=== PATIENT | female | born 1935 | race Caucasian/White ===

== ENCOUNTER 2016-09-18 12:34 | Inpatient (IN) | payer MEDICARE, OTHER ==
--- NOTE | ~2016-09-18 | DS ---
Unit #: [id number] #: [id number] Patient: ARCADIO MOBLEY [id number] [address] [address] [id number] I MR#: [id number] NAME: ARCADIO MOBLEY. ROOM: 309 Age: 80 Sex: F Admission Date: 09/18/2016 : 1935 Discharge Date: Attending Physician: Susy Chiu M.D. Primary Care Physician: Watson Parry M.D. DISCHARGE SUMMARY DISCHARGE DIAGNOSES 1. Acute hypoxic respiratory failure. 2. Community-acquired pneumonia. 3. Chronic obstructive pulmonary disease with exacerbation. 4. Hypertension. 5. Hyperlipidemia. 6. Degenerative disc disease. 7. Former smoker. CONSULTATIONS None. PROCEDURES None. LAB DATA Chest x-ray is clear. Blood cultures negative. Sodium 136, potassium 4.9, creatinine 0.5. Liver enzymes normal. BNP 316. ALLERGIES Amoxicillin, Symbicort, formoterol, Levaquin. DISCHARGE MEDICATIONS 1. Norvasc 20 mg p.o. daily. 2. Pravastatin 40 daily. 3. Lisinopril 40 daily. 4. Tylenol with codeine #3, one tablet q.6 p.r.n. pain. 5. Doxycycline 100 mg p.o. b.i.d. 6. Albuterol two puffs inhalation q.4 p.r.n. shortness of breath. 7. Prednisone tapering dose. 8. Albuterol mini nebs inhalation three times daily p.r.n. shortness of breath. HOSPITALIZATION COURSE 80-year-old admitted because of shortness of breath. Acute hypoxic respiratory failure: Patient was on 3 L currently. Check home O2 before discharge. Community-acquired pneumonia with left base infiltrate: Patient was given Unit #: [id number] #: [id number] Patient: ARCADIO MOBLEY doxycycline. Currently, chest x-ray is clear. Chronic obstructive pulmonary disease with exacerbation: Started on IV Solu-Medrol and Duo-Nebs. Patient's lungs are clear. She is ambulating in her room with shortness of breath. She wants to go home. Family agrees to take care of her. I advised her not to do too much exertion. She understands the instructions. She has Symbicort allergy so I am not going to give her any Symbicort. Continue with albuterol and prednisone tapering dose and follow with PCP in one week time. Dictated by... Heather Caruso/cy TD: 09/21/2016 10:39 JOB #: [id number] DISCHARGE SUMMARY Page 1 of 1 X Susy Chiu MD X DISCHARGE SUMMARY
--- NOTE | ~2016-09-18 | HP ---
Unit #: [id number] #: [id number] Patient: RACADIO MOBLEY [id number] [facility]. [place], [place] [address] [id number] I MR#: [id number] NAME: ARCADIO MOBLEY. ROOM: 309 Age: 80 Sex: F Admission Date: 09/18/2016 : 1935 Attending Physician: Sarah Costa M.D. Primary Care Physician: Watson Parry M.D. HISTORY AND PHYSICAL CHIEF COMPLAINT Pneumonia. HISTORY OF PRESENT ILLNESS The patient is an 80-year-old female with past medical history of COPD, hypertension, hyperlipidemia, degenerative disc disease, who was a direct admit from Dr. Parry for evaluation of the above. The patient states that she has had a two to three week history of increasing shortness of breath. She states that she has had minimal cough until today at which time the cough became productive. She denies any fever although she did feel "hot" yesterday. She denies any chills. No chest pain. She has had dyspnea on exertion when walking across the room. She denies any orthopnea. No paroxysmal nocturnal dyspnea. No swelling of the legs. No weight change. She saw her primary care physician last week and was given a Z-Guille which she completed as prescribed. Symptoms persisted until she was seen in the office today. A chest x-ray was done and showed an infiltrate involving the left base. She was sent to [facility] for admission. PAST MEDICAL HISTORY 1. Admission to [facility] August 25-2012 for right total knee arthroplasty. 2. Hypertension. 3. Hyperlipidemia. 4. COPD, not on home oxygen, not followed by [facility]. 5. Degenerative disc disease. 6. Echocardiogram January 29, 2012 showed an ejection fraction of 50% to 55%. The Doppler flow pattern is suggestive of impaired left ventricular relaxation. There is mild tricuspid regurgitation. Right ventricular systolic pressure was elevated at 40 to 50 mmHg. PAST SURGICAL HISTORY 1. Appendectomy. 2. Hysterectomy. SOCIAL HISTORY The patient lives with her . She quit smoking years ago but probably smoked for 10 to 20 years. According to the patient, she denies alcohol use. Her code status is a Full Code. FAMILY HISTORY Family history is notable for osteoarthritis, diabetes, hypertension. Unit #: [id number] #: [id number] Patient: ARCADIO MOBLEY ALLERGIES Symbicort, budesonide, Levaquin. HOME MEDICATIONS 1. Prinivil 40 mg daily. 2. Pravastatin 40 mg daily. 3. Amlodipine 10 mg daily. 4. Hydrocodone and acetaminophen 5/325 q.6-8 h. p.r.n. 5. Proventil two puffs q.4 h. p.r.n. 6. Triamterene and hydrochlorothiazide 75/50 p.o. daily. REVIEW OF SYSTEMS A complete review of systems is negative except as indicated in the HPI. DIAGNOSTIC STUDIES IMAGING: Chest x-ray shows infiltrate involving the left base. CARDIOVASCULAR: EKG shows sinus rhythm with marked sinus arrhythmia and a rate of 73 beats per minute. There is T-wave inversion in leads V3 through V6. LABORATORY: Labs are pending. PHYSICAL EXAMINATION VITAL SIGNS: Temperature is 97.7. Pulse 75. Respirations 16. Blood pressure 147/67. Oxygen saturation is 93% on room air. GENERAL: The patient is a very pleasant female who is awake and alert, in no acute distress. HEENT: The head is atraumatic. Mucous membranes are moist. NECK: Neck is supple. Trachea is midline. CARDIOVASCULAR: Regular rate and rhythm. LUNGS: Demonstrate scattered inspiratory and expiratory wheezes. Breathing is not labored with conversation. ABDOMEN: Abdomen is soft, nontender, with bowel sounds present in all four quadrants. EXTREMITIES: Nontender, with no pedal edema. NEUROLOGIC: The patient is awake and alert. She follows commands. PSYCHIATRIC: Mood and affect are normal. The patient is cooperative. SKIN: Skin of examined areas is warm and dry. ASSESSMENT The patient is an 80-year-old female with: 1. Community-acquired pneumonia. 2. Chronic obstructive pulmonary disease exacerbation that has failed outpatient treatment with azithromycin. 3. Hypertension. 4. Hyperlipidemia. 5. Degenerative disc disease. 6. Former smoker. PLAN 1. Admit to intermediate level. 2. Healthy heart diet if passes bedside swallow. 3. Normal saline at 75 mL an hour. 4. Blood cultures x2. 5. Sputum culture and sensitivity. 6. Supplemental oxygen. Unit #: [id number] #: [id number] Patient: ARCADIO MOBLEY 7. DuoNeb q.4 h. 8. Solu-Medrol 80 mg IV q.12 h. 9. Mucinex 600 mg p.o. b.i.d. 10. Rocephin and doxycycline for community-acquired pneumonia pending further workup. 11. Procalcitonin level. 12. Check labs including CBC, CMP, BNP. 13. EKG and cardiac enzymes. 14. Protonix for GI prophylaxis. 15. SCDs for DVT prophylaxis. 16. Repeat labs in the morning. 17. Regarding code status the patient is a Full Code. Dictated by Sarah Costa M.D. JONATHON/wilfredo TD: 09/18/2016 15:19 JOB #: [id number] HISTORY AND PHYSICAL Page 1 of 1 X Sarah Costa MD HISTORY AND PHYSICAL
--- NOTE | ~2016-09-18 | CR63 ---
[facility] A Service of [facility] & [facility] RADIOLOGY TEXT RESULTS PATIENT: ARCADIO MOBLEY LOCATION: [facility] 309- : 34 UNIT #: [id number] AGE: [address]: Susy Chiu MD SEX: F ORDER DR: [id number] [facility] [address] [place], [place] [address] [id number] I MR#: [id number] Acc #: [id number] NAME: ARCADIO MOBLEY. : 1935 SEX: F STUDY DATE/TIME: 09/20/2016 11:59 UNIT: [address] ROOM: [facility] STUDY DESCRIPTION: CR Chest 2 View Attending Physician: Susy Chiu M.D. Ordering Physician: Susy Chiu M.D. Primary Care Physician: Watson Parry M.D. MEDICAL IMAGING REPORT This report is preliminary unless electronic signature is present STUDY PA and lateral chest. HISTORY Mild chest congestion since . FINDINGS PA and lateral views are obtained. Heart size is enlarged. Vascular pattern is normal. Lungs are clear. There are dense atherosclerotic calcifications in the aorta. CONCLUSION Stable cardiomegaly. No active disease. ADDENDUM The infiltrate in the left base appears to have cleared. Dictated by... Andrew Pittman M.D. THIS IS AN ELECTRONICALLY VERIFIED REPORT Andrew Pittman M.D. at 09/21/2016 9:17 AM Fransisca TD: 09/20/2016 19:31 JOB #: [id number] MEDICAL IMAGING REPORT Page 1 of 1 COPY
--- NOTE | ~2016-09-18 | EKG ---
PATIENT: ARCADIO MOBLEY UNIT #: [id number] Ventricular Rate: 73 BPM Atrial Rate: 73 BPM P-R Interval: 134 ms QRS Duration: 96 ms Q-T Interval: 428 ms QTC Calculation(Bezet): 471 ms P Salem: 66 degrees Calculated R Salem: -66 degrees Calculated T Salem: -142 degrees Diagnosis Line: Sinus rhythm with marked sinus arrhythmia Diagnosis Line: Left axis deviation Diagnosis Line: Septal infarct (cited on or before 06-AUG-2011) Diagnosis Line: T wave abnormality, consider inferior ischemia Diagnosis Line: T wave abnormality, consider anterolateral Diagnosis Line: ischemia Diagnosis Line: Abnormal ECG Diagnosis Line: When compared with ECG of 16-AUG-2012 08:18, Diagnosis Line: Significant changes have occurred Diagnosis Line: Confirmed by VAUGHN BATES MD ([id number]) on 09/18/2016 Diagnosis Line: 6:58:43 PM INTERPRETING MD: JANA VALLE
[~2016-09-18 12:34] MED LIST: ALBUTEROL17 GM INH; AMLODIPINE BESY10 MG PO; BENADRYL PO; BYSTOLIC10 MG PO; COUMADIN PO; DOXYCYCLINE150 MG PO; HYDROCODON-ACE1 EAC7 PO; PRAVASTATIN SOD40 MG PO; PREDNISONE PO; PRINIVIL40 MG PO; SYMBICORT INH; TRIAMTERENE-HC1 EACH PO; ZESTRIL40 MG PO; ZYRTEC PO
[2016-09-18] MEDS ORDERED: PROVENTIL HFA INH (13:10)
[2016-09-18] MEDS ORDERED: TRIAMTERENE-HC1 EACH PO (13:11)
[2016-09-18 14:30] LABS: HEMATOCRIT 39.7 % (35.0-45.0); HEMOGLOBIN 12.7 gm/dL (12.0-16.0); MEAN CELL VOLUME 92.1 FL (83-96); MEAN CORPUSCULAR HEMOGLOBIN 29.4 PG (28-34); MEAN CORPUSCULAR HGB CONC 31.9 g/dL (30-36); MEAN PLATELET VOLUME 8.3 FL (6.5-11.5); RED BLOOD COUNT 4.31 X10e (3.90-5.30); WHITE BLOOD COUNT 7.7 X10e3 (4.0-10.5)
[2016-09-18 15:01] LABS: BILIRUBIN,TOTAL 0.8 mg/dL (0.2-2.0); BUN/CREATININE RATIO 21.66; CALCIUM SERUM 9.3 mg/dL (8.4-10.2); CREATININE SERUM 0.6 mg/dL (0.6-1.4); GLOM FILT RATE Estimated 85.5 mL/min (>60); POTASSIUM 4.3 mmol/L (3.5-5.1); PROTEIN TOTAL SERUM 6.5 g/dL (6.0-8.3)
[2016-09-18 15:19] LABS: %MB 4.8 % (0.0-4.0); MB 6.2 ng/ml
[2016-09-18 20:54] LABS: MB 5.5 ng/ml
[2016-09-19 08:09] LABS: HEMATOCRIT 41.2 % (35.0-45.0); HEMOGLOBIN 13.1 gm/dL (12.0-16.0); MEAN CELL VOLUME 92.7 FL (83-96); MEAN CORPUSCULAR HEMOGLOBIN 29.4 PG (28-34); MEAN CORPUSCULAR HGB CONC 31.7 g/dL (30-36); MEAN PLATELET VOLUME 8.9 FL (6.5-11.5); RED BLOOD COUNT 4.45 X10e (3.90-5.30); RED CELL DISTRIBUTION WIDTH 13.3 % (11.0-15.5); WHITE BLOOD COUNT 4.2 X10e3 (4.0-10.5)
[2016-09-19 09:01] LABS: ALBUMIN SERUM 3.8 g/dL (3.5-5.0); BILIRUBIN,TOTAL 0.6 mg/dL (0.2-2.0); CALCIUM SERUM 9.3 mg/dL (8.4-10.2); CREATININE SERUM 0.5 mg/dL (0.6-1.4); GLOM FILT RATE Estimated 90.8 mL/min (>60); POTASSIUM 4.9 mmol/L (3.5-5.1); PROTEIN TOTAL SERUM 6.5 g/dL (6.0-8.3)
[2016-09-19 09:37] LABS: %MB 5.8 % (0.0-4.0); MB 6.9 ng/ml
[2016-09-21] MEDS ORDERED: MORGIDOX100 MG PO ×2 (10:49→11:20)
[2016-09-21] MEDS ORDERED: TYLENOL #3 PO (10:52)
[2016-09-21] MEDS ORDERED: ALBUTEROL2.5 MG/3 M INH (11:26)
[2016-09-21] MEDS ORDERED: PREDNISONE PO (11:29)
[2016-12-29] MEDS ORDERED: ASPIRIN81 MG PO (17:27)
[2016-12-29] MEDS ORDERED: PREDNISONE PO (17:28)
[2016-12-29] MEDS ORDERED: OMNICEF300 M1 PO (17:28)
== END 2016-09-21 14:35 | disposition home or self-care (01) | DRG 189 ==
LOC: C3A PCU 12:34
PROVIDERS: Family Medicine
DX: J96.01 Acute respiratory failure with hypoxia (principal); J18.9 Pneumonia, unspecified organism; J44.0 Chronic obstructive pulmonary disease with (acute) lower respiratory infection; J44.1 Chronic obstructive pulmonary disease with (acute) exacerbation; I10 Essential (primary) hypertension; E78.5 Hyperlipidemia, unspecified; Z87.891 Personal history of nicotine dependence; Z96.659 Presence of unspecified artificial knee joint; Z90.710 Acquired absence of both cervix and uterus; Z82.61 Family history of arthritis; Z83.3 Family history of diabetes mellitus; Z88.1 Allergy status to other antibiotic agents; Z88.8 Allergy status to other drugs, medicaments and biological substances
CPT/HCPCS: 71020; 80053; 82308; 82550; 82553; 83880; 84484; 85027; 87040; 87070; 87205; 93005; 94640; 94664; 94760; J0696; J2920; J2930